=== PATIENT | male | born 1975 | race Asian ===

== ENCOUNTER 2018-02-23 11:05 | Outpatient (CLI) | payer OTHER | END 2018-02-23 19:56 | disposition home or self-care (01) | LOC: RAD 11:05 | DX: M54.5 Low back pain (principal); M25.569 Pain in unspecified knee; M25.561 Pain in right knee; M54.9 Dorsalgia, unspecified; E78.5 Hyperlipidemia, unspecified; E11.9 Type 2 diabetes mellitus without complications ==